=== PATIENT | male | born 1995 | race African-American/Black ===

== ENCOUNTER 2016-09-06 14:47 | Inpatient (IN) | payer OTHER ==
[2016-09-06 17:22] VITALS: BMI 28.5
--- NOTE | 2016-09-06 18:16 | HP ---
CIWA Score - CIWA Score Nausea/Vomitin-Mild Nausea/No Vomiting Muscle Tremors: 4-Moderate,w/Arms Extend Anxiety: 4-Mod. Anxious/Guarded Agitation: 4-Moderately Restless Paroxysmal Sweats: 1-Minimal Palms Moist Orientation: 1-Uncertain about Date Tacttile Disturbances: 0-None Auditory Disturbances: 0-None Visual Disturbances: 0-None Headache: 0-None Present CIWA-Ar Total Score: 15 Admission ROS BHS - HPI Chief Complaint: WITHDRAWAL SX Allergies/Adverse Reactions: Allergies Allergy/AdvReac Type Severity Reaction Status Date / Time No Known Allergies Allergy Verified 09/06/16 17:43 History of Present Illness: 21 YEARS OLD MALE WITH LONG HISTORY OF ALCOHOL MARIJUANA NICOTINE DEPENDENCE HAS BIPOLAR II IS ADMITTED TO DETOX Exam Limitations: No Limitations - Ebola screening Have you traveled outside of the country in the last 21 days: No Have you had contact with anyone from an Ebola affected area: No Have you been sick,other than usual withdrawal symptoms: No Do you have a fever: No - Review of Systems Constitutional: Chills, Changes in sleep, Weight Stable EENT: reports: No Symptoms Reported Respiratory: reports: No Symptoms reported Cardiac: reports: Chest Pain (SINCE 05/2016 "GOES AWAY ITSELF" NO FURTHER TREATMENT) GI: reports: Nausea, Poor Fluid Intake, Abdominal cramping : reports: No Symptoms Reported Musculoskeletal: reports: Back Pain, Muscle Pain (CHEST WALL PAIN SINCE 05/2016 UNKNOWN CAUSE "FROM MY STOMACH") Integumentary: reports: No Symptoms Reported Neuro: reports: Seizure (05/2016 FIRST ALCOHOL RELATED SEIZURE, NO TREATMENT), Tremors Endocrine: reports: No Symptoms Reported Hematology: reports: No Symptoms Reported Psychiatric: reports: Judgement Intact, Anxious, Depressed Other Systems: Reviewed and Negative Patient History - Patient Medical History Hx Anemia: No Hx Asthma: Yes (Pt had childhood.) Hx Chronic Obstructive Pulmonary Disease (COPD): No Hx Cancer: No Hx Cardiac Disorders: No Hx Congestive Heart Failure: No Hx Hypertension: No Hx Hypercholesterolemia: No Hx Pacemaker: No HX Cerebrovascular Accident: No Hx Seizures: No Hx Dementia: No Hx Diabetes: No Hx Gastrointestinal Disorders: No Hx Liver Disease: No Hx Genitourinary Disorders: No Hx Sexually Transmitted Disorders: No Hx Renal Disease (ESRD): No Hx Thyroid Disease: No Hx Human Immunodeficiency Virus (HIV): No Hx Hepatitis C: No Hx Depression: No Hx Suicide Attempt: No Hx Bipolar Disorder: Yes Hx Schizophrenia: No - Patient Surgical History Past Surgical History: No - PPD History Previous Implant?: Yes Documented Results: Negative w/o proof Implanted On Prior [facility] Admission?: No PPD to be Administered?: Yes - Smoking Cessation Smoking history: Current every day smoker Have you smoked in the past 12 months: Yes Aproximately how many cigarettes per day: 20 Cigars Per Day: 0 Hx Chewing Tobacco Use: No Initiated information on smoking cessation: Yes 'Breaking Loose' booklet given: 09/06/16 - Substance & Tx. History Hx Alcohol Use: Yes Hx Substance Use: Yes Substance Use Type: Alcohol, Marijuana Hx Substance Use Treatment: Yes - Substances Abused Alcohol Route: Oral Frequency: Daily Amount used: 1 pint cognac Age of first use: 18 Date of Last Use: 09/05/16 Marijuana/Hashish Route: Smoking Frequency: Daily Amount used: 3 blunts Age of first use: 15 Date of Last Use: 09/05/16 Family Disease History - Family Disease History Family History: Unremarkable Admission Physical Exam [facility] - Vital Signs Vital Signs: Vital Signs - 24 hr 09/06/16 17:19 Temperature 97.2 F L Pulse Rate 61 Respiratory 20 Rate Blood Pressure 101/66 - Physical General Appearance: Yes: Appropriately Dressed, Mild Distress, Tremorous, Irritable, Sweating, Anxious HEENTM: Yes: Hearing grossly Normal, Normal ENT Inspection, Normocephalic, Normal Voice Respiratory: Yes: Chest Non-Tender, Lungs Clear, Normal Breath Sounds, No Respiratory Distress, No Accessory Muscle Use Neck: Yes: Supple, Trachea in good position Breast: Yes: Breasts Symetrical Cardiology: Yes: Regular Rhythm, Regular Rate, S1, S2 Abdominal: Yes: Non Tender, Soft, Other (CHRONIC ABDOMINAL PAIN, NO TREATMENT, REGULAR BOWEL MOVEMENT) Genitourinary: Yes: Within Normal Limits Back: Yes: Normal Inspection Musculoskeletal: Yes: full range of Motion, Gait Steady, Back pain Extremities: Yes: Normal Inspection, Normal Range of Motion, Non-Tender, Tremors Neurological: Yes: Alert, Motor Strength 5/5, Normal Response, Depressed Affect Integumentary: Yes: Normal Color, Warm Lymphatic: Yes: Within Normal Limits - Diagnostic (1) Alcohol dependence with uncomplicated withdrawal Current Visit: Yes Status: Acute (2) Cannabis dependence, uncomplicated Current Visit: Yes Status: Chronic (3) Nicotine dependence Current Visit: Yes Status: Acute Qualifiers: Nicotine product type: cigarettes Substance use status: in withdrawal Qualified Code(s): F17.213 - Nicotine dependence, cigarettes, with withdrawal (4) Seizure due to alcohol withdrawal Current Visit: Yes Status: Inactive Qualifiers: Complication of substance-induced condition: uncomplicated Qualified Code(s): F10.230 - Alcohol dependence with withdrawal, uncomplicated (5) Chronic chest pain Current Visit: Yes Status: Chronic Comment: NO INTERVENTION (6) History of asthma Current Visit: Yes Status: Chronic (7) Bipolar II disorder Current Visit: Yes Status: Suspected Cleared for Admission [facility] - Detox or Rehab [facility] Level of Care: Medically Managed Detox Regimen/Protocol: Librium S Breath Alcohol Content Breath Alcohol Content: 0 Urine Drug Screen - Results Drug Screen Negative: No Urine Drug Screen Results: THC-Marijuana, BZO-Benzodiazepines
[2016-09-06] MEDS ORDERED: guaiFENesin/D-METHORPHAN HB 10 ML UNIT-DOSE CUPS PO PRN (18:23)
[2016-09-06] MEDS ORDERED: P-EPHED 60MG/TRIPROLIDI 2.5MG TABLET PO PRN (18:23)
[2016-09-06] MEDS ORDERED: ACETAMINOPHEN 325 MG TABLET (FP) PO PRN (18:23)
[2016-09-06] MEDS ORDERED: MENTHOL/PHENOL 1 EACH UD MM PRN (18:23)
[2016-09-06] MEDS ORDERED: diphenhydrAMINE HCL 50 MG CAPSULE PO PRN (18:23)
[2016-09-06] MEDS ORDERED: NICOTINE POLACRILEX 4 MG GUM BC PRN (18:23)
[2016-09-06] MEDS ORDERED: IBUPROFEN 400 MG TABLET (FP) PO PRN (18:23)
[2016-09-06] MEDS ORDERED: MAG HYDROX/AL HYDROX/SIMETH 30 ML UNIT-DOSE CUP PO PRN (18:23)
[2016-09-06] MEDS ORDERED: LOPERAMIDE HCL 2 MG CAPSULE PO PRN (18:23)
[2016-09-06] MEDS ORDERED: chlordiazePOXIDE HCL 25 MG CAPSULE PO PRN (18:23)
[2016-09-06] MEDS ORDERED: MAGNESIUM HYDROX 2400MG/30ML ORAL SUSPENSION 30 ML CUP PO PRN (18:23)
[2016-09-06] MEDS ORDERED: MAGNESIUM CITRATE 300 ML BOTTLE PO PRN (18:23)
[2016-09-06 21:27] LABS: URINE APPEARANCE CLEAR; URINE BILIRUBIN NEGATIVE (NEGATIVE); URINE BLOOD NEGATIVE (NEGATIVE); URINE COLOR YELLOW; URINE GLUCOSE (UA) NEGATIVE (NEGATIVE); URINE KETONE NEGATIVE (NEGATIVE); URINE LEUK ESTERASE NEGATIVE (NEGATIVE); URINE NITRITE NEGATIVE (NEGATIVE); URINE PROTEIN NEGATIVE (NEGATIVE); URINE UROBILINOGEN NEGATIVE E.U./dl (0.2-1.0)
[2016-09-06] MEDS: THIAMINE HCL 100 MG TABLET (FP) PO SCH (22:05)
[2016-09-06] MEDS: chlordiazePOXIDE HCL 25 MG CAPSULE PO SCH (22:05)
[2016-09-07] MEDS: chlordiazePOXIDE HCL 25 MG CAPSULE PO SCH ×4 (05:17→22:14)
[2016-09-07 09:52] LABS: MEAN CELL VOLUME 94.1 fl (80-96); PLATELET COUNT 133 K/MM3 (134-434); RDW 13.4 % (11.9-15.9); WHITE BLOOD COUNT 4.3 K/mm3 (4.0-10.0)
[2016-09-07 10:34] LABS: HIV 1 & 2 AB NEGATIVE; HIV 1 AGp24 NEGATIVE
[2016-09-07 10:44] LABS: ALBUMIN 3.4 g/dl (3.4-5.0); ALK PHOS 51 U/L (45-117); ANION GAP 12 (8-16); BILIRUBIN,TOTAL 0.5 mg/dL (0.2-1.0); CALCIUM 9.1 mg/dL (8.5-10.1); CO2 30 mmol/L (21-32); COCKROFT - GAULT 147.43; CREATININE 0.9 mg/dL (0.7-1.3); GLUCOSE,RANDOM 78 mg/dL (74-106); SGOT/AST 25 U/L (15-37); SGPT/ALT 104 U/L (12-78); TOT PROT 6.1 g/dl (6.4-8.2)
[2016-09-07] MEDS: PRENATAL VITAMINS W/ FOLIC ACID TABLET (FP) PO SCH (10:58)
[2016-09-07] MEDS: NICOTINE 21 MG/24 HOURS TOPICAL PATCH TD SCH (10:58)
--- NOTE | 2016-09-07 11:15 | EKG ---
Test Reason : Blood Pressure : / mmHG Vent. Rate : 053 BPM Atrial Rate : 053 BPM P-R Int : 166 ms QRS Dur : 106 ms QT Int : 406 ms P-R-T Axes : 039 041 050 degrees QTc Int : 380 ms SINUS BRADYCARDIA RSR' OR QR PATTERN IN V1 SUGGESTS RIGHT VENTRICULAR CONDUCTION DELAY OTHERWISE NORMAL ECG NO PREVIOUS ECGS AVAILABLE BASELINE ARTIFACT Confirmed by MELL FARIAS, FELISA ([id number]) on 09/07/2016 11:14:45 AM Referred By: Confirmed By:FELISA MONTE MD
--- NOTE | 2016-09-07 11:45 | PN ---
S CIWA - CIWA Score Nausea/Vomitin-No Nausea/No Vomiting Muscle Tremors: 4-Moderate,w/Arms Extend Anxiety: 3 Agitation: 4-Moderately Restless Paroxysmal Sweats: 3 Orientation: 0-Oriented Tacttile Disturbances: 0-None Auditory Disturbances: 0-None Visual Disturbances: 0-None Headache: 0-None Present CIWA-Ar Total Score: 14 BHS Progress Note (SOAP) Subjective: shakes sweats interrupted sleep agitation Objective: 09/07/16 11:44 Vital Signs Temperature 97 F L 09/07/16 11:02 Pulse Rate 59 L 09/07/16 11:02 Respiratory Rate 14 09/07/16 11:02 Blood Pressure 124/61 09/07/16 11:02 O2 Sat by Pulse Oximetry (%) Laboratory Tests 09/06/16 09/07/16 09/07/16 20:01 07:00 07:00 WBC 4.3 RBC 4.63 Hgb 14.8 Hct 43.6 MCV 94.1 MCHC 34.0 RDW 13.4 Plt Count 133 L MPV 9.0 Sodium Potassium Chloride Carbon Dioxide Anion Gap BUN Creatinine Creat Clearance w eGFR Random Glucose Calcium Total Bilirubin AST ALT Alkaline Phosphatase Total Protein Albumin Urine Color Yellow Urine Appearance Clear Urine pH 7.0 Urine Protein Negative Urine Glucose (UA) Negative Urine Ketones Negative Urine Blood Negative Urine Nitrite Negative Urine Bilirubin Negative Urine Urobilinogen Negative Ur Leukocyte Esterase Negative RPR Titer HIV 1&2 Antibody Screen Negative HIV P24 Antigen Negative 09/07/16 09/07/16 07:00 07:00 WBC RBC Hgb Hct MCV MCHC RDW Plt Count MPV Sodium 144 Potassium 3.9 Chloride 102 Carbon Dioxide 30 Anion Gap 12 BUN 9 Creatinine 0.9 Creat Clearance w eGFR > 60 Random Glucose 78 Calcium 9.1 Total Bilirubin 0.5 AST 25 ALT 104 H Alkaline Phosphatase 51 Total Protein 6.1 L Albumin 3.4 Urine Color Urine Appearance Urine pH Urine Protein Urine Glucose (UA) Urine Ketones Urine Blood Urine Nitrite Urine Bilirubin Urine Urobilinogen Ur Leukocyte Esterase RPR Titer Nonreactive HIV 1&2 Antibody Screen HIV P24 Antigen awake/alert ambulating no acute distress Assessment: 09/07/16 11:45 withdrawal sx Plan: continue detox increase fluids
--- NOTE | 2016-09-07 16:59 | CONSULT ---
[facility] Psychiatric Consult - Data Date of interview: 09/07/16 Admission source: [facility] Identifying data: First admission to [facility] for this 21 y/o AA male seeking detox treatment,on ,for alcohol and marijuana dependence.Patient is single without children,homeless,unemployed and supported on SSI benefits. Substance Abuse History: - Smoking Cessation. Smoking history: Current every day smoker. Have you smoked in the past 12 months: Yes. Aproximately how many cigarettes per day: 20. Cigars Per Day: 0. Hx Chewing Tobacco Use: No. Initiated information on smoking cessation: Yes. 'Breaking Loose' booklet given : 09/06/16. - Substance & Tx. History. Hx Alcohol Use: Yes. Hx Substance Use : Yes. Substance Use Type: Alcohol, Marijuana. Hx Substance Use Treatment: Yes. - Substances Abused. Alcohol. Route: Oral. Frequency: Daily. Amount used: 1 pint cognac. Age of first use: 18. Date of Last Use: 09/05/16. Marijuana/Hashish. Route: Smoking. Frequency: Daily. Amount used: 3 blunts. Age of first use: 15. Date of Last Use: 09/05/16. Confirmed by patient. Medical History: Recent history of withdrawal-related seizures.Patient is otherwise in good general health. Psychiatric History: Patient reports a history of multiple psychiatric hospitalizations.Known to [facility], [facility].Diagnosed with Bipolar Disorder (self-report).Mr Church informs that he sees a psychiatrist in the [place] for medication management.Currently on seroquel 200 mg/hs.No reported history of suicide attempts. Physical/Sexual Abuse/Trauma History: Patient denies. Additional Comment: Urine Drug Screen Results: THC-Marijuana, BZO- Benzodiazepines.Noted. Mental Status Exam - Mental Status Exam Alert and Oriented to: Time, Place, Person Cognitive Function: Good Patient Appearance: Unkempt (unshaven), Disheveled Mood: Anxious (mildly), Apprehensive Affect: Mood Congruent Patient Behavior: Fatigued, Appropriate, Cooperative Speech Pattern: Clear (indonesian speaking), Appropriate Voice Loudness: Normal Thought Process: Goal Oriented Thought Disorder: Not Present Hallucinations: Denies Suicidal Ideation: Denies Homicidal Ideation: Denies Insight/Judgement: Poor Sleep: Poorly, Difficulty falling asleep Appetite: Good Muscle strength/Tone: Normal Gait/Station: Normal Psychiatric Findings - Problem List ([place] 1, 2,3) (1) Alcohol dependence with uncomplicated withdrawal Current Visit: Yes Status: Acute (2) Cannabis dependence, uncomplicated Current Visit: Yes Status: Acute (3) Nicotine dependence Current Visit: Yes Status: Acute Qualifiers: Nicotine product type: cigarettes Substance use status: in withdrawal Qualified Code(s): F17.213 - Nicotine dependence, cigarettes, with withdrawal (4) Substance induced mood disorder Current Visit: Yes Status: Acute (5) Bipolar disorder Current Visit: Yes Status: Chronic Comment: Self-report. (6) History of asthma Current Visit: Yes Status: Chronic (7) Insomnia Current Visit: Yes Status: Acute - Initial Treatment Plan Initial Treatment Plan: Psychoeducation.Detoxification in progress.Seroquel 200 mg po hs.Patient is made aware of risk for oversedation/accidental falls, abnormal involuntary movements,metabolic syndrome,cardiac adverse events.He agrees ton resume seroquel in this course of treatment.Observation.Medication is verified through survey of pharmacy claims of 08/24/16 for seroquel @ [facility] # [id number].No need for scripts at discharge.
[2016-09-07] MEDS: QUEtiapine FUMARATE 200 MG TABLET PO SCH (22:14)
[2016-09-07] MEDS: THIAMINE HCL 100 MG TABLET (FP) PO SCH (22:14)
[2016-09-08] MEDS: chlordiazePOXIDE HCL 25 MG CAPSULE PO SCH ×3 (06:13→19:38)
--- NOTE | 2016-09-08 10:23 | PN ---
S CIWA - CIWA Score Nausea/Vomitin Muscle Tremors: 2 Anxiety: 2 Agitation: 2 Paroxysmal Sweats: 2 Orientation: 0-Oriented Tacttile Disturbances: 1-Very Mild Itch/Numbness Auditory Disturbances: 0-None Visual Disturbances: 0-None Headache: 0-None Present CIWA-Ar Total Score: 11 BHS Progress Note (SOAP) Subjective: interrupted sleep, sweats Objective: 09/08/16 10:22 Vital Signs Temperature 97.2 F L 09/08/16 06:00 Pulse Rate 52 L 09/08/16 06:00 Respiratory Rate 18 09/08/16 06:00 Blood Pressure 111/54 09/08/16 06:00 O2 Sat by Pulse Oximetry (%) Laboratory Tests 09/06/16 09/07/16 09/07/16 20:01 07:00 07:00 WBC 4.3 RBC 4.63 Hgb 14.8 Hct 43.6 MCV 94.1 MCHC 34.0 RDW 13.4 Plt Count 133 L MPV 9.0 Sodium Potassium Chloride Carbon Dioxide Anion Gap BUN Creatinine Creat Clearance w eGFR Random Glucose Calcium Total Bilirubin AST ALT Alkaline Phosphatase Total Protein Albumin Urine Color Yellow Urine Appearance Clear Urine pH 7.0 Ur Specific [place] 1.015 Urine Protein Negative Urine Glucose (UA) Negative Urine Ketones Negative Urine Blood Negative Urine Nitrite Negative Urine Bilirubin Negative Urine Urobilinogen Negative Ur Leukocyte Esterase Negative RPR Titer HIV 1&2 Antibody Screen Negative HIV P24 Antigen Negative 09/07/16 09/07/16 07:00 07:00 WBC RBC Hgb Hct MCV MCHC RDW Plt Count MPV Sodium 144 Potassium 3.9 Chloride 102 Carbon Dioxide 30 Anion Gap 12 BUN 9 Creatinine 0.9 Creat Clearance w eGFR > 60 Random Glucose 78 Calcium 9.1 Total Bilirubin 0.5 AST 25 ALT 104 H Alkaline Phosphatase 51 Total Protein 6.1 L Albumin 3.4 Urine Color Urine Appearance Urine pH Ur Specific [place] Urine Protein Urine Glucose (UA) Urine Ketones Urine Blood Urine Nitrite Urine Bilirubin Urine Urobilinogen Ur Leukocyte Esterase RPR Titer Nonreactive HIV 1&2 Antibody Screen HIV P24 Antigen pt aox3 in nad ambulating Assessment: 09/08/16 10:22 withdrawal sx;s eelevated transaminases 09/08/16 10:23 Plan: cont. detox increase fluids sgot/sgpt d/c tylenol
[2016-09-08] MEDS: PRENATAL VITAMINS W/ FOLIC ACID TABLET (FP) PO SCH (11:08)
[2016-09-08] MEDS: NICOTINE 21 MG/24 HOURS TOPICAL PATCH TD SCH (11:08)
[2016-09-08] MEDS: QUEtiapine FUMARATE 200 MG TABLET PO SCH (23:08)
[2016-09-08] MEDS: chlordiazePOXIDE 5 MG CAPSULE PO SCH (23:44)
[2016-09-08] MEDS: THIAMINE HCL 100 MG TABLET (FP) PO SCH (23:44)
[2016-09-09] MEDS: chlordiazePOXIDE 5 MG CAPSULE PO SCH ×3 (06:43→17:55)
--- NOTE | 2016-09-09 10:46 | PN ---
S Progress Note (SOAP) Subjective: ALERT,IRRITABLE,ANXIOUS,INTERRUPTED SLEEP Objective: 09/09/16 10:45 Vital Signs Temperature 96.1 F L 09/09/16 10:26 Pulse Rate 70 09/09/16 10:26 Respiratory Rate 18 09/09/16 10:26 Blood Pressure 142/74 09/09/16 10:26 O2 Sat by Pulse Oximetry (%) Assessment: 09/09/16 10:45 WITHDRAWAL SYMPTOM Plan: CONTINUE DETOX
[2016-09-09] MEDS: NICOTINE 21 MG/24 HOURS TOPICAL PATCH TD SCH (11:18)
[2016-09-09] MEDS: PRENATAL VITAMINS W/ FOLIC ACID TABLET (FP) PO SCH (11:18)
[2016-09-09] MEDS: QUEtiapine FUMARATE 200 MG TABLET PO SCH (23:38)
[2016-09-09] MEDS: THIAMINE HCL 100 MG TABLET (FP) PO SCH (23:39)
--- NOTE | 2016-09-10 08:48 | PN ---
S Progress Note (SOAP) Subjective: ALERT,NO COMPLAINT Objective: 09/10/16 08:47 Vital Signs Temperature 97.2 F L 09/10/16 06:00 Pulse Rate 56 L 09/10/16 06:00 Respiratory Rate 18 09/10/16 06:00 Blood Pressure 117/67 09/10/16 06:00 O2 Sat by Pulse Oximetry (%) Assessment: 09/10/16 08:47 DETOX COMPLETED,NO WITHDRAWAL SYMPTOM Plan: DISCHARGE TODAY,FOLLOW UP WITH AFTER CARE PROGRAM ARRANGEMENT
--- NOTE | 2016-09-10 08:52 | DS ---
[facility] Detox Discharge Summary Admission Date: 09/06/16 Discharge Date: 09/10/16 - History Present History: Alcohol Dependence, Cannabis Dependence Additional Comments: FOLLOW UP WITH AFTER CARE PROGRAM ,[facility] APPOINTMENT Pertinent Past History: SEIZURE ASTHMA BIPOLAR 2 DISORDER - Physical Exam Results Vital Signs: Vital Signs Temperature 97.2 F L 09/10/16 06:00 Pulse Rate 56 L 09/10/16 06:00 Respiratory Rate 18 09/10/16 06:00 Blood Pressure 117/67 09/10/16 06:00 O2 Sat by Pulse Oximetry (%) Pertinent Admission Physical Exam Findings: WITHDRAWAL SYMPTOM - Treatment Hospital Course: Detox Protocol Followed, Detoxed Safely, Responded well, Discharged Condition Good, Rehab Referral Accepted Patient has Accepted a Rehab Referral to: [facility] - Medication Discharge Medications: Ambulatory Orders Quetiapine Fumarate [Seroquel -] 200 mg PO HS 09/06/16 Quetiapine Fumarate [Seroquel -] 200 mg PO HS #30 tab 09/07/16 - AMA Did Patient Leave Against Medical Advice: No
[2016-09-10 10:51] VITALS: BP 138/79; PULSE 58; TEMP 98.2
[2016-09-10] MEDS ORDERED: PNEUMOCOCCAL 23 VACCINE 0.5 ML VIAL IM ONE (12:00)
[2016-09-10] MEDS ORDERED: PNEUMOC 13-VAL CONJ-DIP CRM/PF 0.5 ML DISP.SYRIN IM ONE (12:00)
== END 2016-09-10 10:02 | disposition home or self-care (01) | DRG 775 ==
LOC: YASAS 14:47 → Y6N 18:42
PROVIDERS: ADMIT Internal Medicine Addiction Medicine; ATTEND Internal Medicine Addiction Medicine
PROC: HZ2ZZZZ Detoxification Services for Substance Abuse Treatment (ICD-10-PCS; principal; 2016-09-10)
DX: F10.230 Alcohol dependence with withdrawal, uncomplicated (principal); F12.20 Cannabis dependence, uncomplicated; F17.213 Nicotine dependence, cigarettes, with withdrawal; F31.9 Bipolar disorder, unspecified; F19.24 Other psychoactive substance dependence with psychoactive substance-induced mood disorder; G47.00 Insomnia, unspecified; J45.909 Unspecified asthma, uncomplicated; G40.509 Epileptic seizures related to external causes, not intractable, without status epilepticus
CPT/HCPCS: 36415; 71020-TC; 80053; 81003; 85027; 86593; 87389; 93005; 93010

== ENCOUNTER 2016-09-21 08:32 | Inpatient (IN) | payer OTHER ==
[2016-09-21 09:15] VITALS: BMI 28.2
--- NOTE | 2016-09-21 16:31 | HP ---
BRITTANY FARIAS Rehab Assess/Revision - Admission History Admitted to Rehab from: [facility] Date of Admission to Rehab: 09/21/2016 - Vital signs Vital Signs: Vital Signs Period Temp Pulse Resp BP Sys/[place] Pulse Ox Last 24 Hr 97.1 F 55 18 118/66 pt aox3 in nad ambulating well no tremors , no hallucinations steady gait - Findings Detox History & Physical reviewed: Yes Concur with findings: Yes (h/o bipolar d/o , depression ) Comments/Additional Findings: Pt states hes been smoking 3 cannabis joints /d and he has drank 1pt(total)cocgnac since d/c.
[2016-09-21] MEDS ORDERED: MAG HYDROX/AL HYDROX/SIMETH 30 ML UNIT-DOSE CUP PO PRN (16:36)
[2016-09-21] MEDS ORDERED: diphenhydrAMINE HCL 50 MG CAPSULE PO PRN (16:36)
[2016-09-21] MEDS ORDERED: MAGNESIUM HYDROX 2400MG/30ML ORAL SUSPENSION 30 ML CUP PO PRN (16:36)
[2016-09-21] MEDS ORDERED: IBUPROFEN 400 MG TABLET (FP) PO PRN (16:36)
[2016-09-21] MEDS ORDERED: NICOTINE POLACRILEX 4 MG GUM BUC PRN (16:36)
[2016-09-21] MEDS ORDERED: ACETAMINOPHEN 325 MG TABLET (FP) PO PRN (16:36)
[2016-09-21] MEDS ORDERED: guaiFENesin/D-METHORPHAN HB 10 ML UNIT-DOSE CUPS PO PRN (16:36)
[2016-09-21] MEDS ORDERED: MAGNESIUM CITRATE 300 ML BOTTLE PO PRN (16:36)
[2016-09-21] MEDS ORDERED: LOPERAMIDE HCL 2 MG CAPSULE PO PRN (16:36)
[2016-09-21] MEDS ORDERED: MENTHOL/PHENOL 1 EACH UD MM PRN (16:36)
[2016-09-21] MEDS ORDERED: P-EPHED 60MG/TRIPROLIDI 2.5MG TABLET PO PRN (16:36)
[2016-09-21] MEDS: THIAMINE HCL 100 MG TABLET (FP) PO SCH (21:19)
[2016-09-21] MEDS: QUEtiapine FUMARATE 100 MG TABLET (FP) PO SCH (21:19)
[2016-09-22] MEDS: PRENATAL VITAMINS W/ FOLIC ACID TABLET (FP) PO SCH (10:10)
[2016-09-22] MEDS: NICOTINE 21 MG/24 HOURS TOPICAL PATCH TD SCH (10:11)
--- NOTE | 2016-09-22 13:48 | HP ---
Psychiatrist Admission - Data Date of interview: 09/22/16 Admission source: [address] [place] [address] Identifying data: This is the first admissionto [address] [place] [address] for this 21 years old AA single childless male ,homeless,unemloyed,supported by [facility]. Medical History: H/O BA in childhood. Psychiatric History: First contact with psychiatrist was in high school.patient was [facility] to [facility] due to DOD cused by drinking ,smoking cannabis.patient was dx with Bipolar disrder.he was placed on ativan,Traodone , Risperidone ,Zoloft and something else.Patient reports 5 more psychiatric hospitalizations.Most recent was this year to [facility] due to depression, drinking.Patient stopped to see a psychiatrist since June 2016 after being discharged from [facility].Patient was on seroquel 300 mg po hs,restarted in Detox ordered by . Physical/Sexual Abuse/Trauma History: denies Vital Signs: Vital Signs - 24 hr 09/21/16 09/22/16 09/22/16 20:17 00:30 03:30 Temperature 98.5 F Pulse Rate 49 L Respiratory 18 16 16 Rate Blood Pressure 129/66 09/22/16 06:53 Temperature 97.8 F Pulse Rate 54 L Respiratory 16 Rate Blood Pressure 118/63 Allergies/Adverse Reactions: Allergies Allergy/AdvReac Type Severity Reaction Status Date / Time No Known Allergies Allergy Verified 09/21/16 14:20 Date of last physical exam: 09/21/16 Concur with the findings of this exam: Yes - Substance Abuse/Tx History Hx Alcohol Use: Yes (drinking since 17 yo,henessy,beer daily) Hx Substance Use: Yes (marijuana since 16 yo,3 joints daily) Substance Use Type: Alcohol, Marijuana Hx Substance Use Treatment: Yes (didnt complete inpatient rehab,except 6 months of dual program in [facility]) - Admission Criteria Previous failed treatment: Yes Poor recovery environment: Yes Comorbidities: Yes Lacks judgement: Yes Mental Status Exam - Mental Status Exam Alert and Oriented to: Time, Place, Person Cognitive Function: Grossly Intact Patient Appearance: Unkempt Mood: Sad Affect: Mood Congruent Patient Behavior: Cooperative Speech Pattern: Clear Voice Loudness: Normal Thought Process: Goal Oriented Thought Disorder: Not Present Hallucinations: Denies Suicidal Ideation: Denies Homicidal Ideation: Denies Insight/Judgement: Fair Sleep: Fair Appetite: Good Muscle strength/Tone: Normal Gait/Station: Normal Psychiatric Findings - Problem List ([place] 1, 2,3) (1) Nicotine dependence Current Visit: Yes Status: Chronic Qualifiers: (2) Cannabis dependence, uncomplicated Current Visit: Yes Status: Chronic (3) History of asthma Current Visit: Yes Status: Chronic (4) Bipolar II disorder Current Visit: No Status: Suspected (5) Alcohol dependence Current Visit: Yes Status: Chronic - Initial Treatment Plan Initial Treatment Plan: Continue Seroquel 300 mg po hs.Will monitor progress.
[2016-09-22] MEDS ORDERED: PNEUMOC 13-VAL CONJ-DIP CRM/PF 0.5 ML DISP.SYRIN IM ONE (14:00)
[2016-09-22] MEDS: THIAMINE HCL 100 MG TABLET (FP) PO SCH (21:20)
[2016-09-22] MEDS: QUEtiapine FUMARATE 100 MG TABLET (FP) PO SCH (21:20)
[2016-09-23] MEDS: PRENATAL VITAMINS W/ FOLIC ACID TABLET (FP) PO SCH (09:54)
[2016-09-23] MEDS: NICOTINE 21 MG/24 HOURS TOPICAL PATCH TD SCH (09:54)
[2016-09-23] MEDS ORDERED: PNEUMOCOCCAL 23 VACCINE 0.5 ML VIAL IM ONE (12:00)
[2016-09-23] MEDS: QUEtiapine FUMARATE 100 MG TABLET (FP) PO SCH (21:27)
[2016-09-23] MEDS: THIAMINE HCL 100 MG TABLET (FP) PO SCH (21:28)
[2016-09-24] MEDS: PRENATAL VITAMINS W/ FOLIC ACID TABLET (FP) PO SCH (10:15)
[2016-09-24] MEDS: NICOTINE 21 MG/24 HOURS TOPICAL PATCH TD SCH (10:15)
[2016-09-24] MEDS: QUEtiapine FUMARATE 100 MG TABLET (FP) PO SCH (21:28)
[2016-09-24] MEDS: THIAMINE HCL 100 MG TABLET (FP) PO SCH (21:29)
[2016-09-25] MEDS: NICOTINE 21 MG/24 HOURS TOPICAL PATCH TD SCH (09:50)
[2016-09-25] MEDS: PRENATAL VITAMINS W/ FOLIC ACID TABLET (FP) PO SCH (09:50)
[2016-09-25] MEDS: QUEtiapine FUMARATE 100 MG TABLET (FP) PO SCH (21:36)
[2016-09-25] MEDS: THIAMINE HCL 100 MG TABLET (FP) PO SCH (21:37)
[2016-09-26] MEDS: PRENATAL VITAMINS W/ FOLIC ACID TABLET (FP) PO SCH (10:03)
[2016-09-26] MEDS: NICOTINE 21 MG/24 HOURS TOPICAL PATCH TD SCH (10:03)
[2016-09-26] MEDS: QUEtiapine FUMARATE 100 MG TABLET (FP) PO SCH (21:28)
[2016-09-26] MEDS: THIAMINE HCL 100 MG TABLET (FP) PO SCH (21:28)
[2016-09-27] MEDS: PRENATAL VITAMINS W/ FOLIC ACID TABLET (FP) PO SCH (10:45)
[2016-09-27] MEDS: NICOTINE 21 MG/24 HOURS TOPICAL PATCH TD SCH (10:45)
[2016-09-27] MEDS: QUEtiapine FUMARATE 100 MG TABLET (FP) PO SCH (21:43)
[2016-09-27] MEDS: THIAMINE HCL 100 MG TABLET (FP) PO SCH (21:43)
[2016-09-28] MEDS: PRENATAL VITAMINS W/ FOLIC ACID TABLET (FP) PO SCH (10:02)
[2016-09-28] MEDS: NICOTINE 21 MG/24 HOURS TOPICAL PATCH TD SCH (10:02)
[2016-09-28] MEDS: THIAMINE HCL 100 MG TABLET (FP) PO SCH (21:29)
[2016-09-28] MEDS: QUEtiapine FUMARATE 100 MG TABLET (FP) PO SCH (21:29)
[2016-09-29] MEDS: NICOTINE 21 MG/24 HOURS TOPICAL PATCH TD SCH (09:56)
[2016-09-29] MEDS: PRENATAL VITAMINS W/ FOLIC ACID TABLET (FP) PO SCH (09:56)
[2016-09-29] MEDS: QUEtiapine FUMARATE 100 MG TABLET (FP) PO SCH (21:21)
[2016-09-29] MEDS: THIAMINE HCL 100 MG TABLET (FP) PO SCH (21:21)
[2016-09-30] MEDS: NICOTINE 21 MG/24 HOURS TOPICAL PATCH TD SCH (09:51)
[2016-09-30] MEDS: PRENATAL VITAMINS W/ FOLIC ACID TABLET (FP) PO SCH (09:51)
[2016-09-30] MEDS: THIAMINE HCL 100 MG TABLET (FP) PO SCH (21:23)
[2016-09-30] MEDS: QUEtiapine FUMARATE 100 MG TABLET (FP) PO SCH (21:23)
[2016-10-01] MEDS: NICOTINE 21 MG/24 HOURS TOPICAL PATCH TD SCH (10:01)
[2016-10-01] MEDS: PRENATAL VITAMINS W/ FOLIC ACID TABLET (FP) PO SCH (10:01)
--- NOTE | 2016-10-01 15:31 | PN ---
Psychiatric Progress Note Vital Signs: Vital Signs Period Temp Pulse Resp BP Sys/[place] Pulse Ox Last 24 Hr 97.8 F 62 16-18 129/69 Date of Session: 10/01/16 Chief Complaint:: progress update HPI: Patient is addressing alcohol, cannabis, nicotine dependence comorbid Bipolar I diosrder. ROS: asthma medically managed Current Medications: Active Medications Generic Name Dose Route Start Last Admin Trade Name Freq PRN Reason Stop Dose Admin Acetaminophen 650 mg 09/21/16 16:36 09/23/16 06:46 Tylenol - PO 650 mg Q4H PRN Administration FEVER OR PAIN Al Hydroxide/Mg Hydroxide 30 ml 09/21/16 16:36 Mylanta Oral Suspension - PO Q6H PRN DYSPEPSIA Diphenhydramine HCl 50 mg 09/21/16 16:36 Benadryl - PO HSMR1 PRN FOR ITCHING Eucalyptus/Menthol/Phenol/Sorbitol 1 each 09/21/16 16:36 Cepastat Lozenge - MM Q4H PRN SORE THROAT Guaifenesin 10 ml 09/21/16 16:36 Robitussin Dm - PO Q6H PRN COUGH Ibuprofen 400 mg 09/21/16 16:36 Motrin - PO Q6H PRN PAIN Loperamide HCl 4 mg 09/21/16 16:36 Imodium - PO Q6H PRN DIARRHEA Magnesium Hydroxide 30 ml 09/21/16 16:36 Milk Of Magnesia - PO DAILY PRN CONSTIPATION Nicotine 21 mg 09/22/16 10:00 10/01/16 10:01 Nicoderm Patch - TD 21 mg DAILY GREGORIO Administration Nicotine Polacrilex 4 mg 09/21/16 16:36 Nicorette Gum - BUC Q2H PRN NICOTINE REPLACEMENT RX Multivit/Folic Acid/Iron 1 tab 09/22/16 10:00 10/01/16 10:01 Vitamins ([facility]) - PO 1 tab DAILY GREGORIO Administration Pseudoephedrine/Triprolidine 1 combo 09/21/16 16:36 Actifed - PO TID PRN NASAL CONGESTION Quetiapine Fumarate 300 mg 09/21/16 22:00 09/30/16 21:23 Seroquel - PO 300 mg HS GREGORIO Administration Quetiapine Fumarate 50 mg 10/02/16 07:00 Seroquel - PO AM GREGORIO Thiamine HCl 100 mg 09/21/16 22:00 09/30/16 21:23 Vitamin B1 - PO 100 mg HS GREGORIO Administration Current Side Effect: No Lab tests ordered: No Lab tests reviewed: Yes Provider note:: Patient reports he has a dificult time to adjust to the unit, he has urges to leave treatment, mood instability, he also was observed by the staff acting adriano, starring at the staff , giggling. Reviewed the chart, Dr. Llanos's admission notes appreciated. Reviewed medications with the patient , will add Seroquel 50 mg po am and monitor progress. Total face to face time:: 35 Mental Status Exam - Mental Status Exam Alert and Oriented to: Place, Person Cognitive Function: Grossly Intact Patient Appearance: Well Groomed Mood: Euphoric Affect: Mood Congruent, Euthymic Speech Pattern: Clear Voice Loudness: Normal Thought Process: Goal Oriented Hallucinations: Denies Suicidal Ideation: Denies Homicidal Ideation: Denies Insight/Judgement: Fair Sleep: Fair Appetite: Fair Muscle strength/Tone: Normal Gait/Station: Normal Psychiatric Treatment Plan - Problem List (1) Alcohol dependence Current Visit: Yes (2) Cannabis dependence, uncomplicated Current Visit: Yes (3) Nicotine dependence Current Visit: Yes Qualifiers: (4) Insomnia Current Visit: No (5) Bipolar disorder Current Visit: No Comment: Self-report.
[2016-10-01] MEDS: THIAMINE HCL 100 MG TABLET (FP) PO SCH (21:28)
[2016-10-01] MEDS: QUEtiapine FUMARATE 100 MG TABLET (FP) PO SCH (21:28)
[2016-10-02] MEDS: QUEtiapine FUMARATE 50 MG TABLET PO SCH (06:06)
[2016-10-02] MEDS: PRENATAL VITAMINS W/ FOLIC ACID TABLET (FP) PO SCH (09:50)
[2016-10-02] MEDS: NICOTINE 21 MG/24 HOURS TOPICAL PATCH TD SCH (09:50)
[2016-10-02] MEDS: QUEtiapine FUMARATE 100 MG TABLET (FP) PO SCH (21:30)
[2016-10-02] MEDS: THIAMINE HCL 100 MG TABLET (FP) PO SCH (21:30)
[2016-10-03] MEDS: QUEtiapine FUMARATE 50 MG TABLET PO SCH (06:39)
[2016-10-03] MEDS: NICOTINE 21 MG/24 HOURS TOPICAL PATCH TD SCH (10:00)
[2016-10-03] MEDS: PRENATAL VITAMINS W/ FOLIC ACID TABLET (FP) PO SCH (10:00)
[2016-10-03] MEDS: QUEtiapine FUMARATE 100 MG TABLET (FP) PO SCH (21:29)
[2016-10-03] MEDS: THIAMINE HCL 100 MG TABLET (FP) PO SCH (21:29)
[2016-10-04] MEDS: QUEtiapine FUMARATE 50 MG TABLET PO SCH (06:01)
[2016-10-04 06:37] VITALS: BP 121/70; PULSE 64; TEMP 97.6
[2016-10-04] MEDS: PRENATAL VITAMINS W/ FOLIC ACID TABLET (FP) PO SCH (10:02)
[2016-10-04] MEDS: NICOTINE 21 MG/24 HOURS TOPICAL PATCH TD SCH (10:02)
--- NOTE | 2016-10-04 15:43 | PN ---
[facility] Progress Note Note: The marketing writer was informed by medical staff that patient walked off the unit, eloped without a referral or discharge plan this am.Please see medical staff notes.
== END 2016-10-04 13:25 | disposition left against medical advice (07) | DRG 770 ==
LOC: YASAS 08:32 → Y5N 15:36
PROVIDERS: ADMIT Psychiatry & Neurology Psychiatry; ATTEND Psychiatry & Neurology Psychiatry
PROC: HZ42ZZZ Group Counseling for Substance Abuse Treatment, Cognitive-Behavioral (ICD-10-PCS; principal; 2016-10-04)
DX: F10.20 Alcohol dependence, uncomplicated (principal); F12.20 Cannabis dependence, uncomplicated; F17.210 Nicotine dependence, cigarettes, uncomplicated; F31.81 Bipolar II disorder; J45.909 Unspecified asthma, uncomplicated; G47.00 Insomnia, unspecified
CPT/HCPCS: 90732; G0009